=== PATIENT | male | born 1970 | race Caucasian/White ===

== ENCOUNTER 2017-06-22 05:57 | Day surgery (SDC) | payer MEDICARE ==
[2017-06-21 11:30] LABS: HEMATOCRIT 49.8 % (42.0-54.0); HEMOGLOBIN 17.6 g/dL (13.5-17.5); MCH 33.7 pg (26.0-34.0); MCHC 35.3 g/dL (31.0-37.0); MCV 95.2 fL (80.0-100.0); MEAN PLATELET VOLUME 9.9 fL (7.4-10.4); RBC 5.23 10x6/uL (4.20-6.10); RDW 14.2 % (11.5-14.5); WBC 11.7 10x3/uL (4.8-10.8)
[2017-06-21 11:38] LABS: CALC OSMOLALITY 283 mosm/kg (275-300); CALCIUM 8.6 mg/dL (8.5-10.1); CARBON DIOXIDE 26.9 mmol/L (21.0-32.0); CHLORIDE - SERUM 106 mmol/L (98-107); CREATININE - SERUM 0.8 mg/dL (0.6-1.3); GLUCOSE 105 mg/dL (74-106); POTASSIUM - SERUM 4.3 mmol/L (3.5-5.1); SODIUM 142 mmol/L (136-145); UREA NITROGEN 16 mg/dL (7-18); eGFR NON AFRICAN AMERICAN > 90 mL/min (90-120)
[~2017-06-22] VITALS: Ht 172.7 cm; Wt 85.3 kg
[~2017-06-22 05:57] MED LIST: KLONOPIN0.5 MG PO; LISINOPRIL5 MG PO; ZOCOR40 MG PO; ZYPREXA15 MG PO
[2017-06-22 07:16] VITALS: BP 126/82; Ht 172.7 cm; Wt 85.3 kg
[2017-06-22] MEDS ORDERED: HYDROCODON-ACE1 EAC7 PO (10:37)
--- NOTE | 2017-06-22 10:49 | NUR ---
PT URINATED 700CC IN URINAL.
--- NOTE | 2017-06-23 08:16 | OP ---
PATIENT NAME: BOONE GREEN MEDICAL RECORD: [id number] :70 LOCATION:D[facility] ADMISSION DATE: SURGEON: RICKIE ROBBINS MD DATE OF OPERATION: 06/22/2017 PREOPERATIVE DIAGNOSES: 1. Anorectal fistula. 2. Rectal bleeding. 3. Pilonidal disease. 4. Hypertension. POSTOPERATIVE DIAGNOSES: 1. Anorectal fistula. 2. Rectal bleeding. 3. Pilonidal disease. 4. Hypertension. PROCEDURES PERFORMED: 1. Colonoscopy. 2. Rectal examination under anesthesia. 3. Rectal biopsy. ANESTHESIA: General. COMPLICATIONS: None. SPECIMENS: Rectal biopsy. Case was grossly contaminated. OPERATIVE COURSE: After consent was obtained, the patient was taken to the operating room and placed in the supine position on the operating table. General anesthesia was given. Next, the patient was placed into stirrups. A timeout was then taken to confirm the correct patient and procedure. Digital rectal exam was performed. No masses identified. Next, colonoscopy was performed. The colonoscope was inserted and the rectum was inflated. The scope was advanced with insufflation under direct endoscopic vision to the cecum. The ileocecal valve was identified and pictured. Greater than 7 minutes were spent on withdrawal of the scope. There is no diverticular disease noted. No masses. No stigmata of bleeding. There are no polyps identified. The scope was retroflexed in the rectum. There were no rectal masses. There was no evidence of internal hemorrhoid. At this time, colonoscope was withdrawn and the colonoscopy was terminated. A 30 cc of local anesthetic were then injected circumferentially around the anus. The perineum was prepped and draped in typical sterile fashion. Serial rectal dilatation was performed using the [place] retractors and tenaculum was then placed. There were 4-5 sinus openings on the posterior portion of the external anus. The lacrimal probe was passed. There was no active communication within any of the sinus tracts with the rectum. With digital rectal pressure, there was no fluid expressed from either sinus tracts. The skin to the sinus tracts communicated in an irregular fashion. The overlying skin was excised as well as the part of the sinus tract with electrocautery and sent for permanent pathology. At this time, the rectum was packed with Gelfoam soaked in [place]. The tenaculum was removed. Gauze was placed in the rectum. At the end of the case, all needle and instrument counts were correct. No complications occurred. The patient was extubated and OPERATIVE REPORT [id number] PETER,BOONE transferred to the PACU in stable condition. TRANSINT:[id number] Voice Confirmation ID: [id number] DOCUMENT ID: [id number] RICKIE ROBBINS MD at 0816 CC: [id number] DICTATION DATE: 06/22/17 1034 FLEET SERVICE CLERK: 06/22/17 1725 [facility] 06/22/[address] [id number]
== END 2017-06-22 12:00 | disposition home or self-care (01) ==
LOC: D.OPS 05:57 → D.PAN 08:45 → D.OPS 11:10 → D.PAN 11:15 → D.OPS 12:00
PROVIDERS: Anesthesiology
DX: K60.5 Anorectal fistula (principal); K62.5 Hemorrhage of anus and rectum; I10 Essential (primary) hypertension; F17.200 Nicotine dependence, unspecified, uncomplicated; E11.9 Type 2 diabetes mellitus without complications; Z01.812 Encounter for preprocedural laboratory examination